=== PATIENT | male | born 1960 | race Caucasian/White ===

== ENCOUNTER 2022-01-25 12:33 | Inpatient (IN) | payer BC ==
[2022-01-25 14:42] LABS: MCH 31.4 pg (25.7-33.7); MCHC 33.3 g/dl (32.0-35.9); MEAN CELL VOLUME 94.3 fl (80-96); MEAN PLT VOLUME 7.8 fl (7.5-11.1); PLATELET COUNT 224 10^3/uL (134-434); RBC 4.46 M/mm3 (4.00-5.60); RDW 14.4 % (11.9-15.9); WHITE BLOOD COUNT 9.6 K/mm3 (4.0-10.0)
[2022-01-25 14:49] LABS: INR 0.94 (0.83-1.09); PROTHROMBIN TIME (PATIENT) 10.8 SEC (9.7-13.0)
[2022-01-25 14:51] LABS: ACTIVATED PTT 27.6 SECONDS (25.2-36.5)
[2022-01-25 15:08] LABS: CHLORIDE 110 mmol/L (98-107); SODIUM 142 mmol/L (136-145)
[2022-01-25 15:10] LABS: ALBUMIN 3.6 g/dl (3.4-5.0); ANION GAP 8 MMOL/L (8-16); BLOOD UREA NITROGEN 13.8 mg/dL (7-18); CALCIUM 8.8 mg/dL (8.5-10.1); CO2 24 mmol/L (21-32); GLUCOSE,RANDOM 82 mg/dL (74-106)
[2022-01-25 15:13] LABS: CREATININE 0.8 mg/dL (0.55-1.3); SGOT/AST 39 U/L (15-37); SGPT/ALT 25 U/L (13-61)
[2022-01-25 15:14] LABS: BILIRUBIN,TOTAL 0.4 mg/dL (0.2-1)
[2022-01-25 15:15] LABS: TOT PROT 6.5 g/dl (6.4-8.2)
[2022-01-25 15:16] LABS: ALK PHOS 74 U/L (45-117)
[2022-01-25 15:25] LABS: ANISOCYTOSIS 0; HELMET CELLS 0; HOWELL-JOLLY BODIES 0; MACROCYTOSIS 0; OVALOCYTE 0; ROULEAU 0; SICKELED CELLS 0; TARGET CELLS 0; TEAR DROP CELLS 0; TOXIC GRANULATION 0
[2022-01-25] MEDS ORDERED: ASPIRIN 81 MG CHEWABLE TABLETS PO ONE (15:31)
[2022-01-25] MEDS ORDERED: ASPIRIN 325 MG TABLET ONE (15:32)
[2022-01-25] MEDS ORDERED: ASPIRIN 81 MG CHEWABLE TABLETS ONE (15:33)
[2022-01-25] MEDS ORDERED: ATORVASTATIN CA 80 MG TABLET (FP) PO ONE (15:58)
[2022-01-25] MEDS ORDERED: ATORVASTATIN CA 80 MG TABLET (FP) ONE (16:14)
[2022-01-25] MEDS ORDERED: CLOPIDOGREL BISULFATE 300 MG TABLET PO ONE (17:10)
[2022-01-25] MEDS ORDERED: HEPARIN NA (PORCINE) 5,000 UNITS/ML 1ML VIAL IVPUSH ONE (17:10)
[2022-01-25] MEDS ORDERED: HEPARIN NA (PORCINE) 5,000 UNITS/ML 1ML VIAL ONE (17:20)
[2022-01-25] MEDS ORDERED: CLOPIDOGREL BISULFATE 300 MG TABLET ONE (17:20)
[2022-01-25] MEDS ORDERED: HEPARIN INFUSION - 25,000 UNITS/500 ML INFUS.BAG IVPB ONE (17:21)
[2022-01-25] MEDS: HEPARIN INFUSION - 25,000 UNITS/500 ML INFUS.BAG IVPB SCH (17:34)
[2022-01-25 18:27] LABS: PHOSPHOROUS 3.8 mg/dL (2.5-4.9)
[2022-01-25] MEDS ORDERED: NITROGLYCERIN SUBLINGUAL 1/150 0.4 MG TAB SL PRN (18:50)
[2022-01-25] MEDS: METOPROLOL TARTRATE 25 MG TABLET (FP) PO SCH (21:39)
[2022-01-25 21:59] VITALS: BMI 21.9
[2022-01-26 07:51] LABS: BASO % 0.5 % (0-2.0); EOS % 1.4 % (0-4.5); HEMATOCRIT 46.2 % (35.4-49); HEMOGLOBIN 14.9 GM/dL (11.7-16.9); LYMPH % 18.2 % (8-40); MCH 30.5 pg (25.7-33.7); MCHC 32.3 g/dl (32.0-35.9); MEAN CELL VOLUME 94.4 fl (80-96); MEAN PLT VOLUME 8.1 fl (7.5-11.1); MONO % 4.8 % (3.8-10.2); NEUT % 75.1 % (42.8-82.8); PLATELET COUNT 252 10^3/uL (134-434); RBC 4.89 M/mm3 (4.00-5.60); RDW 14.5 % (11.9-15.9); WHITE BLOOD COUNT 9.1 K/mm3 (4.0-10.0)
[2022-01-26 08:00] LABS: INR 0.97 (0.83-1.09); PROTHROMBIN TIME (PATIENT) 11.2 SEC (9.7-13.0)
[2022-01-26 08:03] LABS: ACTIVATED PTT 42.8 SECONDS (25.2-36.5); SODIUM 142 mmol/L (136-145)
[2022-01-26 08:06] LABS: CO2 28 mmol/L (21-32)
[2022-01-26 08:09] LABS: CREATININE 0.9 mg/dL (0.55-1.3)
[2022-01-26] MEDS ORDERED: HEPARIN NA (PORCINE) 5,000 UNITS/ML 1ML VIAL IVPUSH PRN ×2 (08:33)
[2022-01-26 08:59] LABS: ALBUMIN 3.6 g/dl (3.4-5.0); BLOOD UREA NITROGEN 13.3 mg/dL (7-18); GLUCOSE,RANDOM 93 mg/dL (74-106)
[2022-01-26 09:02] LABS: CHOLESTEROL 200 mg/dL (50-200)
[2022-01-26 09:04] LABS: BILIRUBIN,TOTAL 0.9 mg/dL (0.2-1)
[2022-01-26 09:05] LABS: ALK PHOS 71 U/L (45-117); LDL CHOLESTEROL (ONLY SJRH) 134 mg/dL (5-100)
[2022-01-26 09:14] LABS: HDL CHOLESTEROL 49 mg/dL (40-60)
[2022-01-26 09:15] LABS: ANION GAP 6 MMOL/L (8-16); CALCIUM 8.6 mg/dL (8.5-10.1); CHLORIDE 108 mmol/L (98-107); MAGNESIUM 2.2 mg/dL (1.8-2.4); PHOSPHOROUS 3.4 mg/dL (2.5-4.9); SGOT/AST 25 U/L (15-37); SGPT/ALT 22 U/L (13-61); TOT PROT 6.4 g/dl (6.4-8.2); TRIGLYCERIDES 89 mg/dL (0-150)
[2022-01-26] MEDS: CLOPIDOGREL BISULFATE 75 MG TABLET (FP) PO SCH (09:18)
[2022-01-26] MEDS: ASPIRIN 81 MG CHEWABLE TABLETS PO SCH (09:18)
[2022-01-26] MEDS: METOPROLOL TARTRATE 25 MG TABLET (FP) PO SCH ×3 (09:19→21:38)
[2022-01-26] MEDS: HEPARIN INFUSION - 25,000 UNITS/500 ML INFUS.BAG IVPB SCH (18:23)
[2022-01-26] MEDS: ATORVASTATIN CA 80 MG TABLET (FP) PO SCH (21:35)
[2022-01-27] MEDS: METOPROLOL TARTRATE 25 MG TABLET (FP) PO SCH ×2 (09:21→20:39)
[2022-01-27] MEDS: ASPIRIN 81 MG CHEWABLE TABLETS PO SCH (09:21)
[2022-01-27] MEDS: CLOPIDOGREL BISULFATE 75 MG TABLET (FP) PO SCH (09:21)
[2022-01-27] MEDS: HEPARIN INFUSION - 25,000 UNITS/500 ML INFUS.BAG IVPB SCH ×2 (09:26→18:53)
[2022-01-27 18:22] VITALS: RESP 22
[2022-01-27] MEDS: ATORVASTATIN CA 80 MG TABLET (FP) PO SCH (20:39)
[2022-01-27 20:42] VITALS: BP 116/72; PULSE 64; TEMP 98.6
== END 2022-01-27 20:43 | disposition short-term general hospital (02) | DRG 282 ==
LOC: JER 12:33 → JERBED 17:28 → J4W 19:58
PROVIDERS: ADMIT Internal Medicine; ATTEND Internal Medicine
DX: I21.4 Non-ST elevation (NSTEMI) myocardial infarction (principal); R07.9 Chest pain, unspecified
CPT/HCPCS: 36415; 71046-TC-FY; 80053; 80061; 83036; 83735; 84100; 84484; 85025; 85610; 85730; 93005; 93010; 99285-25; C9803-CS; J1644; U0003; U0005

== ENCOUNTER 2024-02-16 09:24 | Emergency (ER) | payer BC, OTHER ==
[2024-02-16 09:34] VITALS: BP 158/88; PULSE 89; RESP 16; TEMP 98.1; BMI 25.7
[2024-02-16 12:28] LABS: HIV INTERPRETATION NEGATIVE (NEGATIVE)
== END 2024-02-16 10:37 | disposition home or self-care (01) ==
LOC: JERFT 09:24
DX: N48.89 Other specified disorders of penis (principal)
CPT/HCPCS: 36415; 86803; 87389; 99283-25